=== PATIENT | female | born 1995 | race Two or more races ===

== ENCOUNTER 2017-02-19 15:21 | Emergency (ER) | payer OTHER ==
[~2017-02-19] VITALS: Ht 160 cm; Wt 62.6 kg
--- NOTE | 2017-02-19 16:10 | NUR ---
PT CAME IN WITH C/O FLU LIKE SYMPTOMS. NOTED AFEBRILE. SEEN BY MD FOR EVAL. SAFETY AND COMFORT MEASURES PROVIDED. WILL MONITOR.
[2017-02-19] MEDS ORDERED: ONDANSETRON HCL/PF 4 MG/2 ML VIAL ONE (16:22)
[2017-02-19] MEDS ORDERED: ONDANSETRON HCL/PF 4 MG/2 ML VIAL IV ONE (16:30)
[2017-02-19] MEDS ORDERED: IV NS 0.9% 1,000 ML BAG IV ONE (16:30)
--- NOTE | 2017-02-19 16:30 | NUR ---
IV ACCESS STARTED. PT MEDICATED ORDERED.
[2017-02-19] MEDS ORDERED: KETOROLAC TROMETHAMINE INJ 30 MG/ML VIAL ONE (18:12)
[2017-02-19] MEDS ORDERED: ACETAMINOPHEN ES 500 MG TABLET ONE (18:14)
--- NOTE | 2017-02-19 18:20 | NUR ---
PT C/O HEADACHE, PT MEDICATED PER STRAIGHTENING PRESS OPERATOR ORDER, PT HAS A FEVER, VITAL SIGNS INFORMED TO STRAIGHTENING PRESS OPERATOR, WILL CONTINUE TO MONITOR.
[2017-02-19] MEDS ORDERED: KETOROLAC TROMETHAMINE INJ 30 MG/ML VIAL IV ONE (18:30)
[2017-02-19] MEDS ORDERED: ACETAMINOPHEN 325 MG TABLET PO ONE (18:30)
--- NOTE | 2017-02-19 19:22 | NUR ---
Patient discharged to home in stable condition. Written and verbal after care instructions given. Patient verbalizes understanding of instruction.IV removed. Catheter intact and site benign. Pressure and 4x4 applied to site. No bleeding noted.
[2017-02-19 19:24] VITALS: BP 108/62
== END 2017-02-19 19:24 | disposition home or self-care (01) ==
LOC: ER 15:23
DX: B34.9 Viral infection, unspecified (principal)
CPT/HCPCS: 71010; 87804; 93005; 96361; 96374; 96375; 99285; A4606; J1885; J2405; J7030; Z7610; 87400

== ENCOUNTER 2017-09-10 23:44 | Emergency (ER) | payer OTHER ==
[~2017-09-10] VITALS: Ht 160 cm; Wt 68.0 kg
[2017-09-11 00:40] LABS: APPEARANCE,URINE CLEAR (CLEAR); BILIRUBIN,URINE NEGATIVE (NEGATIVE); BLOOD, URINE NEGATIVE Ery/uL (NEGATIVE); COLOR,URINE YELLOW (YELLOW); KETONES,URINE NEGATIVE (NEGATIVE); LEUKOCYTE ESTERASE ,URINE NEGATIVE (NEGATIVE); NITRITE, URINE NEGATIVE (NEGATIVE); PH,URINE 6.5 (5.0-8.0); PROTEIN,URINE NEGATIVE (NEGATIVE); UGLUCOSE NEGATIVE (NEGATIVE); UROBILINOGEN,URINE 0.2 EU/dL (0.2)
[2017-09-11 00:44] LABS: WHITE BLOOD COUNT (AUTO) 8.5 K/uL (4.3-11.0)
[2017-09-11 00:45] LABS: BASOPHILS % (AUTO) 0.3 % (0.0-2.0); EOSINOPHILS % (AUTO) 2.9 % (0.0-6.0); HEMATOCRIT 35 % (33-45); LYMPHOCYTES # (AUTO) 3.2 /CMM (0.8-4.8); LYMPHOCYTES % (AUTO) 38.3 % (20.0-44.0); MEAN CORPUSCULAR HEMOGLOBIN 23 PG (26.0-33.0); MEAN CORPUSCULAR HGB CONC 32 g/dl (31.0-36.0); MEAN CORPUSCULAR VOLUME 72 fL (82-100); MONOCYTES # (AUTO) 0.7 /CMM (0.1-1.30); NEUTROPHILS # (AUTO) 4.3 /CMM (1.8-8.9); NEUTROPHILS % (AUTO) 50.5 % (43.0-81.0); PLATELET COUNT (AUTO) 276 /CMM (150-450); RDW COEFFICIENT OF VARIATION 16.4 (11.5-15.0); RED BLOOD CELL COUNT(AUTO) 4.77 MIL/uL (4.0-5.2)
[2017-09-11 00:52] LABS: CALCIUM, SERUM 8.8 mg/dL (8.5-10.1); CREATININE 0.6 mg/dL (0.6-1.3); POTASSIUM 3.6 mmol/L (3.5-5.1)
[2017-09-11 00:57] LABS: ALBUMIN 3.6 g/dL (3.4-5.0); BILIRUBIN,TOTAL 0.1 mg/dL (0.2-1.0); TOTAL PROTEIN, SERUM 7.6 g/dL (6.4-8.2)
[2017-09-11 03:22] VITALS: BP 112/62
== END 2017-09-11 03:23 | disposition home or self-care (01) ==
LOC: ER 23:45
DX: K56.41 Fecal impaction (principal)
CPT/HCPCS: 36415; 74021; 80048-TC; 80076-TC; 81000-TC; 83690-TC; 84703-TC; 85025-TC; A4606; Z7610

== ENCOUNTER 2018-03-13 23:50 | Emergency (ER) | payer MEDICAID, OTHER ==
[~2018-03-13] VITALS: Ht 162.6 cm; Wt 73.5 kg
[2018-03-14 00:19] VITALS: BP 142/77
== END 2018-03-14 00:38 | disposition home or self-care (01) ==
LOC: ER 23:50
DX: J40 Bronchitis, not specified as acute or chronic (principal)
CPT/HCPCS: 99283; A4606; Z7610

== ENCOUNTER 2018-06-20 10:12 | Emergency (ER) | payer OTHER ==
[~2018-06-20] VITALS: Ht 160 cm; Wt 62.6 kg
--- NOTE | 2018-06-20 10:30 | NUR ---
patient presented to the ER c/o left eye blindness for 30 mins. On room air, breathing evenly and unlabored. ambulatory with steady gait. Connected to the monitor and pulse ox. kept comfortable, will continue to monitor accordingly.
--- NOTE | 2018-06-20 11:33 | NUR ---
wheeled patient via wheelchair going for ct scan.
--- NOTE | 2018-06-20 11:39 | NUR ---
patient came back from ct.
[2018-06-20 12:18] VITALS: BP 115/66
--- NOTE | 2018-06-20 12:18 | NUR ---
Patient discharged to home in stable condition. Written and verbal after care instructions given. Patient verbalizes understanding of instruction.
== END 2018-06-20 12:18 | disposition home or self-care (01) ==
LOC: ER 10:12
DX: H53.8 Other visual disturbances (principal)
CPT/HCPCS: 70450-TC; 84703-TC